=== PATIENT | female | born 1995 | race Caucasian/White ===

== ENCOUNTER 2019-02-13 13:43 | Outpatient (REF) | payer MEDICAID, SELFPAY ==
[2019-02-14 13:46] LABS: Chlamydia Result Negative; GC Result Negative; Specimen Description CERVIX
== END 2019-02-13 14:03 ==
LOC: LBN 13:43
PROVIDERS: PCP Pediatrics; Visit Provider Nurse Practitioner Women's Health
DX: Z11.3 Encounter for screening for infections with a predominantly sexual mode of transmission (principal)
CPT/HCPCS: 87491; 87591